=== PATIENT | female | born 1980 | race Caucasian/White ===

== ENCOUNTER → 2018-03-25 02:43 | Outpatient (CLI) | payer MEDICAID, SELFPAY ==
[2018-03-26 10:08] LABS: HBs Antibody, Quant 154.6 mIU/mL; Hepatitis B Surface Ab Positive
[2018-03-26 12:10] LABS: Varicella IgG Antibody Positive
== END ==
DX: B19.10 Unspecified viral hepatitis B without hepatic coma (principal); Z78.9 Other specified health status
CPT/HCPCS: 36415; 86706; 86787

== ENCOUNTER 2019-05-19 09:59 | Outpatient (REF) | payer OTHER, SELFPAY ==
--- NOTE | 2019-05-19 09:10 | PAPFT_PTH ---
PATIENT: Sonam Thompson LOC: [facility] U#:[id number] AGE/SX: 38/F ROOM: RE05/19/[address]: ARVIN Jefferson : 1980 BED: DIS: 05/19/2019 SPEC #: [id number] RECD: 05/19/19 13:08 STATUS: ARAMIS [place] #: [id number] MELANIE: 05/19/19 09:[address]: Diana Huston DEPT: [facility] Cytology RECD BY: Ariadna Whitaker ENTERED: 05/19/19 13:08 SP TYPE: PAPFT OT DR: Maria Guadalupe Cesar APRN Tissues: 1 - CX/ENDOCX FOR PAP SMEARS Procedures: PAP THIN PREP/UVM Screening HPV DNA PROBE Comments: [id number]
[2019-05-20 15:05] LABS: Chlamydia Result Negative; GC Result Negative; Specimen Description CERVIX
== END 2019-05-19 10:19 ==
LOC: LBN 09:59
PROVIDERS: Visit Provider Nurse Practitioner Family
DX: Z11.3 Encounter for screening for infections with a predominantly sexual mode of transmission (principal); Z12.4 Encounter for screening for malignant neoplasm of cervix; Z11.51 Encounter for screening for human papillomavirus (HPV)
CPT/HCPCS: 87491; 87591; 88142; 87624

== ENCOUNTER 2019-06-17 01:47 | Outpatient (CLI) | payer OTHER, SELFPAY ==
--- NOTE | 2019-06-17 16:30 | DI.MAMMO_ITS ---
EXAM: MG MAMMO SCREENING CLINICAL HISTORY: screening TECHNIQUE: Bilateral full field digital CC and MLO mammographic images were obtained with 3D tomosyn thesis and utilizing computer aided detection (CAD). COMPARISON: Available for comparison. FINDINGS: Masses/Architectural Distortion: None seen. Microcalcifications: No suspicious pleomorphic-type are seen. Skin Thickening/Nipple Retraction: None. IMPRESSION: 1. No significant interval change with no specific features of malignancy noted. 2. Unless there is more urgent need, screening mammography is recommended, as per [place] [employer] guidelines. ACR BI-RAD Category- 1 Negative Breast Density - Category C - Heterogeneously dense The mammogram demonstrates the patient's breast tissue is dense. Dense breast tissue is very common a nd is not abnormal but dense breast tissue can make it harder to find cancer on a mammogram. Also, de nse breast tissue may increase their breast cancer risk. This information about the result of the [facility] mogram report was provided to the patient to raise their awareness. Use this report when you speak wi th the patient about their risks for breast cancer, which includes their family history. At that time , you may recommend for more screening tests (Ultrasound or MRI) as they might be useful based on the ir risk. A negative radiographic report should not delay biopsy if a dominant or clinically suspicious mass is present. Up to ten percent of cancers are not identified on mammography. A negative report may reinforce clinical impression. Adenosis and dense breasts may obscure an underlying neoplasm. False positive reports average 6 to 10%.
== END 2019-06-17 02:07 ==
PROVIDERS: Visit Provider Nurse Practitioner Family
DX: Z12.31 Encounter for screening mammogram for malignant neoplasm of breast (principal)
CPT/HCPCS: 77063; 77067

== ENCOUNTER 2019-07-08 07:04 | Emergency (ER) | payer OTHER, SELFPAY ==
[2019-07-08] VITALS (13 sets, daily range): BP systolic 126–148; BP diastolic 73–105; PULSE 84–113; RESP 10–25; TEMP 37.1; O2SAT 98–100
[2019-07-08] MEDS: Normal Saline 1,000 ML 1000 ML IV (07:15)
[2019-07-08] MEDS: methylPREDNISolone SUCC 125 MG VIAL (07:33)
--- NOTE | 2019-07-08 07:45 | ED.GENADUL_ITS ---
Discharge Plan Disposition Patient Disposition: HOME Condition: Good Discharge Details Chief Complaint: Allergic Clinical Impression: Allergic reaction Primary Care Provider: Maria Guadalupe Cesar ED Provider: Neal Esparza [place] Meds and New Rx's Prescriptions: New prednisone 20 mg tablet 40 mg PO HS Qty: 8 RF: 0 Changed diphenhydramine HCl [Benadryl] 25 mg Capsule 50 mg PO Q6H PRN (Reason: Allergic Symptoms) Qty: 0 RF: 0 Discharge Instructions Instructions: General Allergic Reaction (ED) Additional Instructions: Do not wear any make-up over the next week. Benadryl 50 mg every 6 hours as needed for allergic symptoms. Prednisone nightly as directed. Follow-up with primary care next week if not better. Return to ED if you develop fever, eye pain, difficulty breathing, throat or tongue swelling, other concerns. Referrals: Maria Guadalupe Cesar, [employer] OPERATOR [Primary Care Provider] - Medical Decision Making Patient with allergic contact dermatitis. There is no systemic allergic reaction. The eyes themselves are not involved. She took Benadryl this morning. Nursing did place an IV so she is given Solu-Medrol. Will continue on steroids over the next few days. Continue Benadryl. Follow-up with primary care end of week/next week if not better. Return to ED for fever, eye pain, difficulty breathing, oral swelling, other concerns. HPI General Mode of arrival: ambulatory . Date/Time Provider Initiated Documentation: 07/08/19 07:44 . Limitations to Documentation: no limitations . Information obtained by: patient and RN notes reviewed . HPI Narrative: Patient presents to ED with eyelid/facial swelling, itchiness. She denies eye pain. She denies any difficulty breathing. There is no oral swelling though her lips felt funny yesterday. She reports symptoms started after attending a make-up alliance party. This was on Sunday. By the afternoon she had irritation and swelling. She washed all the make-up off. Yesterday she did take Benadryl. This morning her eyes were even more swollen. Related Data Home Medications Medication Instructions Recorded Confirmed diphenhydramine HCl [Benadryl] 50 mg PO Q6H PRN #0 cap 07/08/19 07/08/19 prednisone 40 mg PO HS #8 tab 07/08/19 Previous Rx's Medication Instructions Recorded diphenhydramine HCl [Benadryl] 50 mg PO Q6H PRN #0 cap 07/08/19 prednisone 40 mg PO HS #8 tab 07/08/19 Allergies Allergy/AdvReac Type Severity Reaction Status Date / Time doxycycline AdvReac Intermediate GI upset Verified 07/08/19 07:16 General Stated Complaint: Allergic GRAEME: 2 Review of Systems Narrative: As documented in HPI otherwise negative as below. Const: no fever, chills, weakness Resp: no cough, SOB, pleuritic pain CV: no CP, diaphoresis, edema, syncope GI: no abdominal pain, nausea, vomiting, diarrhea Neuro: no headache, numbness, focal weakness, confusion PFSH Medical History Abnormal Pap smear of cervix Depression affecting Hypertension Social History Smoking/Tobacco Use Status: Current every day Tobacco Type: cigarettes Second Hand Exposure: No Alcohol Intake: current Alcohol Intake frequency: holidays/special occasions only Counseling provided: provider counseling Drug use: Never Substance use type: does not use Household members: children Number of Children: 1 What is your relationship status?: Panel score (0-1 are the most socially isolated patients): 0 Seatbelt use: always Do you feel safe at home: Yes Do you feel safe in your relationship?: Yes History History 4 Para Hx # Term Pregnancies 1 Multiple births Hx # Pregnancies Ectopic pregnancies AB induced Hx Number of Living Children AB spontaneous Exam Narrative Exam Narrative: Vitals: Afebrile. Blood pressure and heart rate elevated likely related to anxiety. Const: WDWN female in NAD. HEENT: NC/AT. Periorbital edema and eyelid swelling. Oropharynx is normal. No edema present. Eyes: Normal conjunctiva and sclera. Neck: Supple. Trachea midline. Lungs: Normal respiratory effort. Lungs are clear. Cor: RRR without murmur/gallop. Good radial pulses. Neuro: A+O x 3. CN grossly in tact. Good strength and no focal deficit. Skin: Warm and dry without rash. Course Vital Signs Vital signs: Vital Signs Temperature 98.8 F 07/08/19 07:09 Pulse 113 H 07/08/19 07:09 Respiratory Rate 21 07/08/19 07:09 Blood Pressure 148/105 H 07/08/19 07:09 Pulse Oximetry 100 07/08/19 07:09 Temperature 98.8 F 07/08/19 07:09 Temperature Source Temporal Artery Scan 07/08/19 07:09 Pulse 113 H 07/08/19 07:09 Respiratory Rate 21 07/08/19 07:09 Respiratory Effort Non-Labored 07/08/19 07:15 Respiratory Pattern Normal 07/08/19 07:15 Blood Pressure 148/105 H 07/08/19 07:09 Blood Pressure Position Sitting 07/08/19 07:09 Pulse Oximetry 100 07/08/19 07:09 Oxygen Delivery Method Room Air 07/08/19 07:09 Oxygen Flow Rate 0 07/08/19 07:09 Pain Level 0 07/08/19 07:09
== END 2019-07-08 08:10 | disposition home or self-care (01) ==
LOC: ER 08:05
PROVIDERS: Emergency Provider Emergency Medicine
DX: T78.40XA Allergy, unspecified, initial encounter (principal); R22.0 Localized swelling, mass and lump, head; H57.13 Ocular pain, bilateral
CPT/HCPCS: 36415; 96360; 99283; J2930

== ENCOUNTER 2020-10-05 03:24 | Outpatient (CLI) | payer OTHER, SELFPAY ==
[2020-10-05 09:15] LABS: ALT 21 U/L (14-59); AST 18 U/L (15-37); Albumin 4.1 g/dL (3.4-5.0); Alkaline Phosphatase 49 U/L (46-116); Anion Gap 8.5 mmol/L (3-11); BUN 17 mg/dL (7-18); Bilirubin, Total 0.5 mg/dL (0.2-1.0); CO2 28.5 mmol/L (21.0-32.0); CREATININE 0.9 mg/dL (0.55-1.02); Calcium 9.1 mg/dL (8.5-10.1); Calculated LDL 150 mg/dL (<100); Chloride 103 mmol/L (98-107); Cholesterol 226 mg/dL (<200); Glucose 88 mg/dL (74-106); HDL Cholesterol 67 mg/dL (40-60); Potassium 4.1 mmol/L (3.5-5.1); Sodium 140 mmol/L (136-145); Total Protein 7.5 g/dL (6.4-8.2); Triglyceride 48 mg/dL (<150)
== END 2020-10-05 03:25 | disposition home or self-care (01) ==
LOC: LBO 03:24
DX: Z00.00 Encounter for general adult medical examination without abnormal findings (principal); Z13.220 Encounter for screening for lipoid disorders
CPT/HCPCS: 36415; 80053; 80061

== ENCOUNTER 2020-10-25 07:34 | Outpatient (CLI) | payer OTHER, SELFPAY ==
--- NOTE | 2020-10-25 07:30 | RT.EKG_ITS ---
APPROVED REPORT Exam: Resting ECG Patient Location: O HR:70 bpm ECG Measurements Heart Rate 70 AXIS VA 172 P 62 QRSd 73 QRS 78 QT 387 T 57 QTc 419 Conclusion Sinus rhythm...normal P axis, V-rate 60- 99
== END 2020-10-25 07:35 | disposition home or self-care (01) ==
LOC: DI.CM 07:36
DX: R07.89 Other chest pain (principal); Z82.49 Family history of ischemic heart disease and other diseases of the circulatory system
CPT/HCPCS: 93010

== ENCOUNTER 2021-07-28 10:13 | Outpatient (REF) | payer OTHER, SELFPAY ==
--- NOTE | 2021-07-28 10:00 | PAPFT_PTH ---
PATIENT: Sonam Thompson LOC: [facility] U#:[id number] AGE/SX: 40/F ROOM: RE07/28/[address]: ARVIN Jefferson : 1980 BED: DIS: 07/28/2021 SPEC #: [id number] RECD: 07/28/21 12:42 STATUS: ARAMIS REQ #: [id number] MELANIE: 07/28/21 10:[address]: Diana Huston DEPT: [facility] Cytology RECD BY: Ariadna Whitaker ENTERED: 07/28/21 12:43 SP TYPE: PAPFT OTHR DR: Maria Guadalupe Cesar APRN Tissues: 1 - CX/ENDOCX FOR PAP SMEARS Procedures: PAP THIN PREP/UVM Screening HPV DNA PROBE Comments: [id number]
== END 2021-07-28 10:14 | disposition home or self-care (01) ==
LOC: LBN 10:13
PROVIDERS: Visit Provider Nurse Practitioner Family
DX: Z12.4 Encounter for screening for malignant neoplasm of cervix (principal); Z11.51 Encounter for screening for human papillomavirus (HPV)
CPT/HCPCS: 88142; 87624

== ENCOUNTER 2021-08-08 00:36 | Outpatient (CLI) | payer OTHER, SELFPAY ==
--- NOTE | 2021-08-08 11:42 | DI.MAMMO_ITS ---
Exam(s) MAMMO SCREENING EXAM: MAMMO SCREENING CLINICAL HISTORY: screening TECHNIQUE: Mammograms were interpreted according to the usual protocol including computer analysis w T[employer]ize CAD system, tomosynthesis and C-view imaging. COMPARISON: 2013 through 2018 FINDINGS: The breasts are composed of heterogeneously dense fibroglandular densities, Breast Density category C . No suspicious masses or suspicious microcalcifications are seen. No skin thickening or abnormal axillary lymph nodes are seen. There has been no significant change from prior exams. IMPRESSION: BI-RADS Category 1, Negative mammogram. Yearly screening mammography is recommended. Breast Density Category C, heterogeneously Dense. The mammogram demonstrates the patient's breast tissue is dense. Dense breast tissue is very common a nd is not abnormal but dense breast tissue can make it harder to find cancer on a mammogram. Also, de nse breast tissue may increase breast cancer risk. This information about the result of the mammogram report was provided to the patient to raise their awareness. Use this report when you speak with the patient about their risks for breast cancer, which includes their family history. At that time, you may recommend additional screening tests (Ultrasound or MRI) as they might be useful based on their r isk. A negative radiographic report should not delay biopsy if a dominant or clinically suspicious mass is present. Up to ten percent of cancers are not identified on mammography. A negative report may reinforce clinical impression. Adenosis and dense breasts may obscure an underlying neoplasm. False positive reports average 6 to 10%.
== END 2021-08-08 00:56 ==
PROVIDERS: Visit Provider Nurse Practitioner Family
DX: Z12.31 Encounter for screening mammogram for malignant neoplasm of breast (principal); R92.8 Other abnormal and inconclusive findings on diagnostic imaging of breast
CPT/HCPCS: 77063; 77067

== ENCOUNTER 2022-02-01 02:22 | Outpatient (CLI) | payer OTHER, SELFPAY ==
[2022-02-01 09:06] LABS: ALT 13 U/L (14-59); AST 20 U/L (15-37); Albumin 3.9 g/dL (3.4-5.0); Alkaline Phosphatase 68 U/L (46-116); Anion Gap 8.2 mmol/L (3-11); BUN 11 mg/dL (7-18); Bilirubin, Total 0.7 mg/dL (0.2-1.0); CO2 26.8 mmol/L (21.0-32.0); CREATININE 1.1 mg/dL (0.55-1.02); Calcium 8.4 mg/dL (8.5-10.1); Calculated LDL 139 mg/dL (<100); Chloride 104 mmol/L (98-107); Cholesterol 221 mg/dL (<200); Estimated GFR 54.74 (mL/min/1.73m2); Glucose 100 mg/dL (74-106); HDL Cholesterol 68 mg/dL (40-60); Potassium 4.1 mmol/L (3.5-5.1); Sodium 139 mmol/L (136-145); Total Protein 7.7 g/dL (6.4-8.2); Triglyceride 72 mg/dL (<150)
== END 2022-02-01 02:23 | disposition home or self-care (01) ==
LOC: LBO 02:22
DX: Z00.00 Encounter for general adult medical examination without abnormal findings (principal); E78.5 Hyperlipidemia, unspecified
CPT/HCPCS: 36415; 80053; 80061

== ENCOUNTER 2022-04-23 16:44 | Emergency (ER) | payer MEDICAID, SELFPAY ==
--- NOTE | 2022-04-23 16:53 | NUR.NOTE ---
Nursing Note: Access called to say that the patient's provider called and told her that she needed to wait another day before being seen. Pt then left.
== END 2022-04-23 16:52 | disposition left before discharge ==
LOC: ER 16:47
DX: Z53.21 Procedure and treatment not carried out due to patient leaving prior to being seen by health care provider (principal)

== ENCOUNTER 2022-08-18 12:11 | Outpatient (CLI) | payer MEDICAID, SELFPAY ==
--- NOTE | 2022-08-18 12:00 | RT.EKG_ITS ---
APPROVED REPORT Exam: Resting ECG Reason for Exam: tachycardia Patient Location: O HR:105 bpm ECG Measurements Heart Rate 105 AXIS WV 157 P 73 QRSd 71 QRS 63 QT 326 T 44 QTc 431 Conclusion Sinus tachycardia...rate> 99 Normal Electrocardiogram
== END 2022-08-18 12:12 | disposition home or self-care (01) ==
LOC: DI.CM 12:12
PROVIDERS: PCP Nurse Practitioner Family; Visit Provider Nurse Practitioner Family
DX: R00.0 Tachycardia, unspecified (principal)
CPT/HCPCS: 93010

== ENCOUNTER 2022-09-27 02:54 | Outpatient (CLI) | payer MEDICAID, SELFPAY ==
--- NOTE | 2022-09-27 15:30 | DI.MAMMO_ITS ---
Exam(s) MAMMO SCREENING EXAM: MAMMO SCREENING CLINICAL HISTORY: screening,z12.39 TECHNIQUE: Bilateral full field digital CC and MLO mammographic images were obtained with 3D tomosyn thesis and utilizing computer aided detection (CAD). COMPARISON: Available for comparison. FINDINGS: Masses/Architectural Distortion: There is an ovoid density in the upper left breast on the mediolater al oblique view 6 cm from the nipple. This may represent overlying fibroglandular tissue, but a spot compression views requested for further evaluation. Microcalcifications: No suspicious pleomorphic-type are seen. Skin Thickening/Nipple Retraction: None. IMPRESSION: 1. Ovoid opacity in the upper left breast on the MLO view 6 cm from the nipple. 2. This area should be further evaluated with spot compression view. Limited left breast ultrasound is requested for further evaluation. BI-RADS Category 0 - Assessment Incomplete: Need additional imaging evaluation Breast Density - Category B - Scattered areas of fibroglandular density Breast density category C or D implies that the patient has dense breast tissue. Dense breast tissue is very common and is not abnormal but dense breast tissue can make it harder to find cancer on a ma mmogram. Also, dense breast tissue may increase their breast cancer risk. This information about the result of the mammogram report was provided to the patient to raise their awareness. Use this report when you speak with the patient about their risks for breast cancer, which includes their family hist ory. At that time, you may recommend for more screening tests (Ultrasound or MRI) as they might be us eful based on their risk. A negative radiographic report should not delay biopsy if a dominant or clinically suspicious mass is present. Up to ten percent of cancers are not identified on mammography. A negative report may reinforce clinical impression. Adenosis and dense breasts may obscure an underlying neoplasm. False positive reports average 6 to 10%. Patient will receive a letter notifying them of these results.
== END 2022-09-27 03:14 ==
LOC: DI 02:54
PROVIDERS: PCP Nurse Practitioner Family; Visit Provider Nurse Practitioner Family
DX: Z12.31 Encounter for screening mammogram for malignant neoplasm of breast (principal); R92.8 Other abnormal and inconclusive findings on diagnostic imaging of breast
CPT/HCPCS: 77063; 77067

== ENCOUNTER 2022-09-29 00:30 | Outpatient (CLI) | payer MEDICAID, SELFPAY ==
--- NOTE | 2022-09-29 | DI.MAMMO_ITS ---
Exam(s) MG MAMMO SCREEN CALL BACK UNI US BREAST LT LIMITED EXAM: MG MAMMO SCREEN CALL BACK UNI and U/S breast LT limited CLINICAL HISTORY: F/U MAMMO, OVOID OPACITY UPPER LT BREAST. TECHNIQUE: Craniocaudal and mediolateral oblique Full Field Digital Mammography views of the left br east with Computer Aided Diagnosis followed by Tomosynthesis and left breast ultrasound. COMPARISON: Comparison is made with prior examinations. FINDINGS: Mammography/Tomosynthesis: Masses/Architectural Distortion: Additional views of the left breast fail to show persistent discrete mass. Microcalcifictions: No suspicious pleomorphic-type are seen. Skin Thickening/Nipple Retraction: None. Limited left breast US: Echotexture: Normal appearance of the glandular tissue. Shadowing: No suspicious foci. Cyst: None. Solid lesions: There is a benign appearing lymph node at the 2 o'clock position measuring 0.9 x 0.4 x 0.9 cm. This corresponds to the stable lymph nodes seen in the upper outer quadrant on the mammogra m. No suspicious masses are seen sonographically. Ductal dilation: None. IMPRESSION: 1. No evidence of malignancy is noted. 2. Unless there is more urgent need, follow-up screening mammography is recommended, as per [place] [employer] guidelines. 3. The findings were discussed with the patient on the date of the examination. BI-RADS Category 1 - Negative Breast Density - Category B - Scattered areas of fibroglandular density Breast density Category C or D implies that the patient has dense breast tissue. Dense breast tissue can make it harder to find cancer on a mammogram. Dense breast tissue is also associated with an incr eased risk of breast cancer. This information about the result of the mammogram report was provided to the patient to raise their awareness. Use this report when you speak with the patient about their risks for breast cancer, which includes their family history. At that time, you may recommend additional screening tests (Ultrasoun d or MRI) as these tests may add significant information. A negative radiographic report should not delay biopsy if a dominant or clinically suspicious mass is present. Up to ten percent of cancers are not identified on mammography. A negative report may reinforce clinical impression. Adenosis and dense breasts may obscure an underlying neoplasm. False positive reports average 6 to 10%. Patient will receive a letter notifying them of these results.
== END 2022-09-29 00:50 ==
LOC: DI 00:30
PROVIDERS: PCP Nurse Practitioner Family; Visit Provider Nurse Practitioner Family
DX: Z12.31 Encounter for screening mammogram for malignant neoplasm of breast (principal); R92.8 Other abnormal and inconclusive findings on diagnostic imaging of breast
CPT/HCPCS: 76642; 77063; 77067

== ENCOUNTER 2024-01-29 16:24 | Outpatient (REF) | payer OTHER, SELFPAY ==
[2024-01-29 21:22] LABS: HCT 40.2 % (36.0-46.0); HGB 13.6 g/dL (11.2-15.7); MCHC 33.8 % (32.0-36.0); MCV 89 fL (80-95); MPV 10.7 fL (8.0-11.0); Platelet Count 342 10^3/uL (130-400); RBC 4.54 10^6/uL (3.93-5.22); RDW 12.4 % (11.7-14.6); RDW-SD 39.8 fL
[2024-01-29 21:33] LABS: Iron 97 ug/dL (50-170)
[2024-01-29 21:48] LABS: ALT 18 U/L (14-59); AST 10 U/L (15-37); Albumin 4.1 g/dL (3.4-5.0); Alkaline Phosphatase 83 U/L (46-116); BUN 9 mg/dL (7-18); Bilirubin, Total 0.5 mg/dL (0.2-1.0); CREATININE 0.8 mg/dL (0.55-1.02); Calcium 9.3 mg/dL (8.5-10.1); Calculated LDL 149 mg/dL (<100); Chloride 101 mmol/L (98-107); Cholesterol 223 mg/dL (<200); Ferritin 15 ng/mL (8-252); Glucose 99 mg/dL (74-106); HDL Cholesterol 54 mg/dL (40-60); Potassium 4.9 mmol/L (3.5-5.1); Sodium 138 mmol/L (136-145); TSH (W/Ref FT4) 5.36 uIU/mL (0.36-3.74); Total Protein 7.8 g/dL (6.4-8.2); Triglyceride 104 mg/dL (<150)
[2024-01-29 22:09] LABS: FREE T4 0.91 ng/dL (0.76-1.46)
== END 2024-01-29 16:25 | disposition home or self-care (01) ==
LOC: LBN 16:24
PROVIDERS: PCP Nurse Practitioner Family; Visit Provider Nurse Practitioner Family
DX: Z00.00 Encounter for general adult medical examination without abnormal findings (principal); N92.0 Excessive and frequent menstruation with regular cycle; F41.8 Other specified anxiety disorders; F90.2 Attention-deficit hyperactivity disorder, combined type; I10 Essential (primary) hypertension; E78.5 Hyperlipidemia, unspecified
CPT/HCPCS: 80053; 80061; 85027; 82728; 83540; 84439; 84443

== ENCOUNTER 2024-03-31 02:35 | Outpatient (CLI) | payer OTHER, SELFPAY ==
--- NOTE | 2024-03-31 08:45 | DI.MAMMO_ITS ---
Exam(s) MAMMO SCREENING EXAM: MAMMO SCREENING CLINICAL HISTORY: screening,z12.39 TECHNIQUE: Bilateral full field digital CC and MLO mammographic images were obtained with 3D tomosyn thesis and utilizing computer aided detection (CAD). COMPARISON: Available for comparison. FINDINGS: Masses/Architectural Distortion: None seen. Microcalcifications: No suspicious pleomorphic-type are seen. Skin Thickening/Nipple Retraction: None. IMPRESSION: 1. No significant interval change with no specific features of malignancy noted. 2. Unless there is more urgent need, screening mammography is recommended, as per [place] [employer] guidelines. BI-RADS Category 1 - Negative Breast Density - Category B - Scattered areas of fibroglandular density Breast density category C or D implies that the patient has dense breast tissue. Dense breast tissue is very common and is not abnormal but dense breast tissue can make it harder to find cancer on a ma mmogram. Also, dense breast tissue may increase their breast cancer risk. This information about the result of the mammogram report was provided to the patient to raise their awareness. Use this report when you speak with the patient about their risks for breast cancer, which includes their family hist ory. At that time, you may recommend for more screening tests (Ultrasound or MRI) as they might be us eful based on their risk. A negative radiographic report should not delay biopsy if a dominant or clinically suspicious mass is present. Up to ten percent of cancers are not identified on mammography. A negative report may reinforce clinical impression. Adenosis and dense breasts may obscure an underlying neoplasm. False positive reports average 6 to 10%. Patient will receive a letter notifying them of these results.
== END 2024-03-31 02:55 ==
LOC: DI 02:35
PROVIDERS: PCP Nurse Practitioner Family; Visit Provider Nurse Practitioner Family
DX: Z12.31 Encounter for screening mammogram for malignant neoplasm of breast (principal)
CPT/HCPCS: 77063; 77067

== ENCOUNTER 2024-05-05 13:26 | Outpatient (REF) | payer OTHER, SELFPAY | END 2024-05-05 13:27 | disposition home or self-care (01) | LOC: LBN 13:26 | PROVIDERS: PCP Nurse Practitioner Family; Visit Provider Obstetrics & Gynecology Gynecology | DX: N89.8 Other specified noninflammatory disorders of vagina (principal); Z97.5 Presence of (intrauterine) contraceptive device | CPT/HCPCS: 87480; 87510; 87660 ==

== ENCOUNTER 2024-12-26 11:18 | Outpatient (CLI) | payer OTHER, SELFPAY ==
[2024-12-26 12:28] LABS: HCT 41.8 % (36.0-46.0); HGB 13.8 g/dL (11.2-15.7); MCH 29.2 pg (27.0-33.0); MCV 89 fL (80-95); MPV 10.4 fL (8.0-11.0); Platelet Count 347 10^3/uL (130-400); RBC 4.72 10^6/uL (3.93-5.22); RDW 12.4 % (11.7-14.6); RDW-SD 40.5 fL; WBC 8.51 10^3/uL (4.4-10.8)
[2024-12-26 12:47] LABS: ALT 26 U/L (14-59); AST 44 U/L (15-37); Albumin 4.2 g/dL (3.4-5.0); Alkaline Phosphatase 77 U/L (46-116); Anion Gap 7.9 mmol/L (3-11); BUN 10 mg/dL (7-18); Bilirubin, Total 0.4 mg/dL (0.2-1.0); CO2 28.1 mmol/L (21.0-32.0); CREATININE 0.9 mg/dL (0.55-1.02); Calcium 9.5 mg/dL (8.5-10.1); Chloride 104 mmol/L (98-107); Estimated GFR 80.84 (mL/min/1.73m2); Glucose 102 mg/dL (74-106); Potassium 4.5 mmol/L (3.5-5.1); Sodium 140 mmol/L (136-145); TSH (W/Ref FT4) 3.33 uIU/mL (0.36-3.74); Total Protein 8.3 g/dL (6.4-8.2)
== END 2024-12-26 11:19 | disposition home or self-care (01) ==
PROVIDERS: PCP Nurse Practitioner Family; Visit Provider Nurse Practitioner Family
DX: R53.83 Other fatigue (principal); K62.5 Hemorrhage of anus and rectum
CPT/HCPCS: 36415; 80053; 85027; 84443

== ENCOUNTER 2025-02-18 13:18 | Outpatient (CLI) | payer OTHER, SELFPAY ==
--- NOTE | 2025-02-18 13:15 | RT.EKG_ITS ---
APPROVED REPORT Exam: Resting ECG Reason for Exam: shortness of breath Patient Location: O HR:87 bpm ECG Measurements Heart Rate 87 AXIS [place] 152 P 53 QRSd 77 QRS 59 QT 354 T 41 QTc 426 Conclusion Sinus rhythm...normal P axis, V-rate 50- 99 Normal Electrocardiogram
== END 2025-02-18 13:19 | disposition home or self-care (01) ==
LOC: DI.CM 13:18
PROVIDERS: PCP Nurse Practitioner Family; Visit Provider Nurse Practitioner Family
DX: R06.02 Shortness of breath (principal)
CPT/HCPCS: 93010

== ENCOUNTER 2025-08-05 13:33 | Outpatient (CLI) | payer OTHER, SELFPAY ==
--- NOTE | 2025-08-05 13:30 | RT.EKG_ITS ---
APPROVED REPORT Exam: Resting ECG Reason for Exam: tachycardia Patient Location: O HR:102 bpm ECG Measurements Heart Rate 102 AXIS [place] 162 P 55 QRSd 76 QRS 58 QT 336 T 27 QTc 438 Conclusion Sinus tachycardia...rate> 99 Otherwise normal ECG
== END 2025-08-05 13:34 | disposition home or self-care (01) ==
LOC: DI.CM 13:34
PROVIDERS: PCP Nurse Practitioner Family; Visit Provider Family Medicine
DX: R00.0 Tachycardia, unspecified (principal)
CPT/HCPCS: 93010

== ENCOUNTER 2025-08-06 08:09 | Outpatient (CLI) | payer OTHER, SELFPAY ==
[2025-08-06 15:02] LABS: ALT 11 U/L (10-49); AST 20 U/L (<34); Albumin 4.2 g/dL (3.2-5.0); Alkaline Phosphatase 65 U/L (46-116); Anion Gap 7.9 mmol/L (3-11); BUN 15 mg/dL (9-23); Bilirubin, Total 0.4 mg/dL (0.2-1.2); CO2 26.1 mmol/L (20.0-31.0); Calcium 9.0 mg/dL (8.3-10.6); Chloride 107 mmol/L (98-107); Glucose 78 mg/dL (74-106); Potassium 4.7 mmol/L (3.5-5.1); Sodium 141 mmol/L (136-145); Total Protein 7.3 g/dL (5.7-8.2)
[2025-08-06 15:04] LABS: TSH (W/Ref FT4) 3.42 uIU/mL (0.55-4.78)
[2025-08-06 15:32] LABS: Hemoglobin A1C 5.0 % (<5.7)
== END 2025-08-06 08:10 | disposition home or self-care (01) ==
LOC: LOS 08:10
PROVIDERS: Family Medicine; PCP Nurse Practitioner Family; Visit Provider Nurse Practitioner Family
DX: E03.9 Hypothyroidism, unspecified (principal); R00.0 Tachycardia, unspecified; Z00.00 Encounter for general adult medical examination without abnormal findings; R73.01 Impaired fasting glucose
CPT/HCPCS: 36415; 80053; 83036; 84443